=== PATIENT | female | born 1985 | race African-American/Black ===

== ENCOUNTER 2017-05-29 08:20 | Emergency (ER) | payer OTHER ==
[~2017-05-29] VITALS: Ht 167.6 cm; Wt 76.0 kg
[2017-05-29 10:19] VITALS: BP 141/86
== END 2017-05-29 10:20 | disposition home or self-care (01) ==
LOC: EMS 08:22
DX: L25.9 Unspecified contact dermatitis, unspecified cause (principal); F17.210 Nicotine dependence, cigarettes, uncomplicated
CPT/HCPCS: 99283

== ENCOUNTER 2019-01-08 07:00 | Emergency (ER) | payer OTHER ==
[~2019-01-08] VITALS: Ht 165.1 cm; Wt 75.0 kg
[2019-01-08] MEDS ORDERED: PROPARACAINE HCL 0.5% 15 ML OPHTHALMIC SOLUTION OD ONE (08:30)
[2019-01-08] MEDS ORDERED: FLUORESCEIN SODIUM 1 MG STRIP ONE (08:33)
[2019-01-08 09:09] VITALS: BP 153/134
== END 2019-01-08 09:10 | disposition home or self-care (01) ==
LOC: EMS 07:01
DX: H10.89 Other conjunctivitis (principal); B99.9 Unspecified infectious disease; F17.210 Nicotine dependence, cigarettes, uncomplicated
CPT/HCPCS: 99406

== ENCOUNTER 2020-07-15 08:16 | Emergency (ER) | payer OTHER ==
[~2020-07-15] VITALS: Ht 167.6 cm; Wt 77.3 kg
[2020-07-15] MEDS ORDERED: MULT-1248 PO (08:19)
[2020-07-15 09:30] VITALS: BP 145/99
== END 2020-07-15 09:57 | disposition home or self-care (01) ==
LOC: EMS 08:27
DX: M77.9 Enthesopathy, unspecified (principal); F17.210 Nicotine dependence, cigarettes, uncomplicated; F12.90 Cannabis use, unspecified, uncomplicated
CPT/HCPCS: 99283

== ENCOUNTER 2022-03-02 08:37 | Emergency (ER) | payer OTHER ==
[~2022-03-02] VITALS: Ht 167.6 cm; Wt 79.5 kg
[~2022-03-02 08:37] MED LIST: MULT-1248 PO
[2022-03-02] MEDS ORDERED: KETOROLAC TROMETHAMINE 30 MG/ML VIAL IM ONE (09:00)
[2022-03-02] MEDS ORDERED: ACETAMINOPHEN 500 MG TABLET PO ONE (09:00)
[2022-03-02] MEDS ORDERED: LIDOCAINE 5% TRANSDERMAL PATCH TD ONE (09:00)
[2022-03-02] MEDS ORDERED: LIDO700A15 TP (09:03)
[2022-03-02] MEDS ORDERED: IBUP-2070 PO (09:03)
[2022-03-02] MEDS ORDERED: ACET-3385 PO (09:03)
[2022-03-02 09:35] VITALS: BP 144/91
== END 2022-03-02 09:41 | disposition home or self-care (01) ==
LOC: EMS 08:42
DX: S39.012A Strain of muscle, fascia and tendon of lower back, initial encounter (principal); F12.90 Cannabis use, unspecified, uncomplicated; F17.210 Nicotine dependence, cigarettes, uncomplicated; X50.0XXA Overexertion from strenuous movement or load, initial encounter; Y93.89 Activity, other specified; Y92.89 Other specified places as the place of occurrence of the external cause; Y99.0 Civilian activity done for income or pay
CPT/HCPCS: 99283; 96372; J1885